=== PATIENT | female | born 1965 | race Caucasian/White ===

== ENCOUNTER 2017-08-08 06:05 | Emergency (ER) | payer OTHER ==
[~2017-08-08] VITALS: Ht 162.6 cm; Wt 83.1 kg
[~2017-08-08 06:05] MED LIST: ALBUAER19 INH; CLR10 PO; DOXY100C2 PO; NITR-5 PO; PRLSR20 PO
[2017-08-08 06:09] VITALS: TEMP 36.5; Ht 162.6 cm; Wt 83.1 kg
[2017-08-08] MEDS ORDERED: ASPCH81X PO (06:23)
[2017-08-08] MEDS ORDERED: GLC/500 PO (06:23)
[2017-08-08] MEDS ORDERED: VNTHFA/IN INH (06:23)
[2017-08-08] MEDS ORDERED: ASPIRIN 81 MG CHEW PO STA (06:27)
[2017-08-08] MEDS ORDERED: ALUMINUM/MAGNESIUM SUSP 30 ML UDC PO STA (06:27)
--- NOTE | 2017-08-08 06:35 | EMERGENCY ROOM VISIT NOTE ---
History Report prepared by Carlos: Citlaly Caldwell Under the Supervision of: Dr. Tahir Denise D.O. 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 She states that movement worsens her pain and she describes it as waxing and waning. She also has numbness that goes from her arms down to her fingertips, neck pain, chest pain, and some shoulder pain. She notes that sometimes her "left breast feels heavy." She has tried icing it and massaging it but they have not alleviated her pain. She has had diarrhea for over a month but denies any SOB. The patient reports that her doctor told her to come to the ED for a stress test as she has had 3 EKGs in the past. She has had a hysterectomy. 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 A total of 10 systems reviewed and were otherwise negative. Past Medical & Surgical Medical Problems: (1) Asthma Surgical Problems: (1) S/P hysterectomy Family History Diabetes mellitus Social History Smoking Status: Never Smoker Alcohol Use: none Marital Status: Housing Status: lives with significant other Occupation Status: employed Current/Historical Medications Scheduled Aspirin (Aspirin Chewable), 81 MG PO QPM Metformin Hcl (Glucophage), 500 MG PO BID Scheduled PRN Albuterol Hfa (Ventolin Hfa), 2 PUFFS INH QID PRN for SOB/Wheezing Allergies Coded Allergies: Milk (Verified Allergy, Severe, "THROAT FEELS FULL", DIARRHEA, 08/08/17) Penicillins (Verified Allergy, Intermediate, eye swelling, 08/08/17) Physical Exam Vital Signs Date Time Temp Pulse Resp B/P (MAP) Pulse Ox O2 Delivery O2 Flow Rate FiO2 08/08/17 07:32 61 15 133/76 97 Room Air 08/08/17 06:37 98 Room Air 08/08/17 06:37 Room Air 08/08/17 06:09 36.5 60 16 131/73 97 Room Air Physical Exam GENERAL: Patient is awake, alert, and in no acute distress. Patient is resting comfortably and showing no signs of anxiety EYES: The conjunctivae are clear. The pupils are round and reactive. EARS, NOSE, MOUTH AND THROAT: The nose is without any evidence of any deformity. Mucous membranes are moist tongue is midline NECK: No midline tenderness or decreased ROM appreciated. Tenderness over the left paraspinous musculature. RESPIRATORY: Normal respiratory effort is noted there is no evidence of wheezing rhonchi or rales CARDIOVASCULAR: Regular rate and rhythm noted there no murmurs rubs or gallops normal S1 normal S2 GASTROINTESTINAL: The abdomen is soft. Bowel sounds are present in all quadrants. Abdomen is nontender BACK: No midline tenderness or or step-off noted range of motion in flexion extension as well as rotation no signs of muscle spasm noted MUSCULOSKELETAL/EXTREMITIES: Pain with ROM of the left shoulder. No warmth or swelling appreciated. Tenderness into the left upper chest wall SKIN: There is no obvious evidence of any rash. There are no petechiae, pallor or cyanosis noted. NEUROLOGIC: Patient is awake alert and oriented x3 strength is symmetric patellar reflexes are 2+ bilaterally Medical Decision & Procedures ER Provider Diagnostic Interpretation: Radiology results as stated below per my review and radiologist interpretation: CHEST ONE VIEW PORTABLE HISTORY: 51 years-old Female CHEST PAIN acute atypical chest pain COMPARISON: None available TECHNIQUE: Portable AP view of the chest FINDINGS: Cardiomediastinal and hilar silhouettes are within normal limits. No pneumothorax, pleural effusion, focal airspace consolidation or overt pulmonary edema. The bones of the chest appear grossly intact. IMPRESSION: No acute process. The above report was generated using voice recognition software. It may contain grammatical, syntax or spelling errors. Electronically signed by: Sebastián Covington M.D. 08/08/2017 7:09 AM CERVICAL SPINE W/O CT DOSE: 266.68 mGy.cm CLINICAL HISTORY: 51 years-old Female with LUE pain and numbness. Acute left upper extremity pain and numbness. No acute reported trauma COMPARISON: None. TECHNIQUE: Multiple axial CT images of the cervical spine were obtained without contrast. A dose lowering technique was utilized adhering to the principles of ALARA. FINDINGS: Straightening of the normal cervical lordosis. There is no acute fracture or subluxation identified. The posterior elements appear intact. Evaluation of the central canal and neuroforamina are better conducted by MRI which has greater sensitivity for evaluation of the structures. Mild multilevel intervertebral disc space narrowing is most pronounced at C4-C5 where there is a small posterior disc osteophyte complex causing mild flattening of the ventral thecal sac without significant central canal or foraminal narrowing. Mild multilevel uncovertebral spurring and facet arthrosis. No high-grade central canal or foraminal stenosis identified. Large area of partially imaged sclerosis involves the right temporal bone and right mastoid air cells measuring 3.7 x 2.5 cm. Macroscopic fat is noted along the inferomedial margin Small right mastoid effusion. Left mastoid air cells are clear. Imaged ribs appear intact. No pneumothorax. Mildly heterogeneous thyroid with 8 mm right thyroid nodule. No pathologic adenopathy or prevertebral soft tissue swelling. IMPRESSION: 1. No acute fracture or subluxation. 2. Mild multilevel intervertebral disc space narrowing, uncovertebral spurring and facet arthrosis. At C4-C5 posterior disc osteophyte complex formation flattens the ventral thecal sac without significant interval canal or foraminal narrowing. 3. Straightening of the normal cervical lordosis may be secondary to paraspinal muscle spasm or patient positioning. 4. Large partially imaged area of sclerosis involving the right temporal bone and posterior right mastoid air cells measures up to 3.7 cm with macroscopic fat along the inferior medial margin, suggesting intraosseous lipoma. 5. Small right mastoid effusion. The above report was generated using voice recognition software. It may contain grammatical, syntax or spelling errors. Electronically signed by: Sebastián Covington M.D. 08/08/2017 7:22 AM L SHOULDER MIN 2 VIEWS ROUTINE HISTORY: 51 years-old Female pain acute left shoulder pain COMPARISON: None available TECHNIQUE: 3 views of the left shoulder FINDINGS: There are mild degenerative changes about the glenohumeral and AC joints. No acute fracture or dislocation. Imaged lung hedrick appear clear. IMPRESSION: No acute fracture or dislocation. The above report was generated using voice recognition software. It may contain grammatical, syntax or spelling errors. Electronically signed by: Sebastián Covington M.D. 08/08/2017 7:00 AM Laboratory Results 08/08/17 06:35 Red Blood Count 5.04, Mean Corpuscular Volume 87.1, Mean Corpuscular Hemoglobin 30.2, Mean Corpuscular Hemoglobin Concent 34.6, Mean Platelet Volume 10.4, Neutrophils (%) (Auto) 50.7, Lymphocytes (%) (Auto) 40.3, Monocytes (%) (Auto) 6.1, Eosinophils (%) (Auto) 1.8, Basophils (%) (Auto) 0.7, Neutrophils # (Auto) 4.34, Lymphocytes # (Auto) 3.44, Monocytes # (Auto) 0.52, Eosinophils # (Auto) 0.15, Basophils # (Auto) 0.06 08/08/17 06:35 Test 08/08/17 06:35 White Blood Count 8.54 K/uL (4.8-10.8) Red Blood Count 5.04 M/uL (4.2-5.4) Hemoglobin 15.2 g/dL (12.0-16.0) Hematocrit 43.9 % (37-47) Mean Corpuscular Volume 87.1 fL (80-100) Mean Corpuscular Hemoglobin 30.2 pg (25-34) Mean Corpuscular Hemoglobin Concent 34.6 g/dl (32-36) Platelet Count 253 K/uL (130-400) Mean Platelet Volume 10.4 fL (7.4-10.4) Neutrophils (%) (Auto) 50.7 % Lymphocytes (%) (Auto) 40.3 % Monocytes (%) (Auto) 6.1 % Eosinophils (%) (Auto) 1.8 % Basophils (%) (Auto) 0.7 % Neutrophils # (Auto) 4.34 K/uL (1.4-6.5) Lymphocytes # (Auto) 3.44 K/uL (1.2-3.4) Monocytes # (Auto) 0.52 K/uL (0.11-0.59) Eosinophils # (Auto) 0.15 K/uL (0-0.5) Basophils # (Auto) 0.06 K/uL (0-0.2) RDW Standard Deviation 41.7 fL (36.4-46.3) RDW Coefficient of Variation 13.1 % (11.5-14.5) Immature Granulocyte % (Auto) 0.4 % Immature Granulocyte # (Auto) 0.03 K/uL (0.00-0.02) Prothrombin Time 10.0 SECONDS (9.0-12.0) Prothromb Time International Ratio 1.0 (0.9-1.1) Activated Partial Thromboplast Time 28.3 SECONDS (21.0-31.0) Partial Thromboplastin Ratio 1.1 Anion Gap 5.0 mmol/L (3-11) Est Creatinine Clear Calc Drug Dose 66.9 ml/min Estimated GFR () 71.7 Estimated GFR (Non- 61.9 BUN/Creatinine Ratio 13.2 (10-20) Calcium Level 9.1 mg/dl (8.5-10.1) Total Bilirubin 0.4 mg/dl (0.2-1) Direct Bilirubin < 0.1 mg/dl (0-0.2) Aspartate Amino Transf (AST/SGOT) 28 U/L (15-37) Alanine Aminotransferase (ALT/SGPT) 40 U/L (12-78) Alkaline Phosphatase 138 U/L (45-117) Total Creatine Kinase 56 U/L (26-192) Creatine Kinase MB < 0.5 ng/ml (0.5-3.6) Creatine Kinase MB Ratio (0-3.0) Troponin I < 0.015 ng/ml (0-0.045) Total Protein 8.4 gm/dl (6.4-8.2) Albumin 3.8 gm/dl (3.4-5.0) Lipase 136 U/L (73-393) Laboratory results per my review. Medications Administered Medications (Trade) Dose Ordered Sig/Raimundo Route Start Time Stop Time Status Last Admin Dose Admin Aspirin (Aspirin Chew) 324 mg NOW STAT PO 08/08/17 06:27 08/08/17 06:29 DC 08/08/17 06:43 324 MG Al Hydroxide/Mg Hydroxide (Maalox Susp) 30 ml NOW STAT PO 08/08/17 06:27 08/08/17 06:29 DC 08/08/17 06:43 30 ML ECG Per My Interpretation Indication: chest pain Rate (beats per minute): 62 Rhythm: normal sinus Findings: T-wave inversion (Anterior), no ectopy, other (low voltage noted throughout) Comparison ECG Date: no prior available ED Course 0621: The patient was evaluated in room A11. A complete history and physical examination were performed. 626: Ordered Maalox Susp 30 ml PO,, Aspirin 324 mg PO 0732: Upon reevaluation, the patient is feeling better. I discussed the results and treatment plan with her. She verbalized agreement of the treatment plan. She was discharged home. 0835: She has a heart score of 3. Medical Decision Prior records/ancillary studies reviewed. Triage Nursing notes reviewed. The patient's history was concerning for chest pain. Differential diagnosis: Etiologies such as cardiac ischemia, aortic dissection, pulmonary embolism, pneumonia, pneumothorax, musculoskeletal, infections, pericarditis, myocarditis , esophageal rupture, gastrointestinal, as well as others were entertained. The patient is a 51-year-old female who presented to the emergency department for an evaluation of chest discomfort. The patient states that she was seen by her primary care physician in [place] and was scheduled for a stress test because of pain that she was experiencing in her shoulder. The patient has a strong family history of coronary artery disease and reportedly had an abnormal EKG and her primary care physician's office. The patient's pain is not exertional. The pain is reproducible with palpation over the chest wall as well as movement of the shoulder. The patient states that she has had ongoing discomfort through the majority of the week. The pain has been over the last 24 hours constant. The patient's EKG did show some nonspecific T-wave abnormalities. Her troponin was negative despite having ongoing pain. The patient was treated with aspirin and Maalox. I discussed patient's laboratory and radiographic studies with her. I also discussed the limitations of the emergency department workup for chest pain. At this time the patient is scheduled for a stress test. She was encouraged to rest and avoid any strenuous activity. She was encouraged to continue all medications as prescribed. She was also encouraged to follow-up with her primary care physician to discuss other workup such as EMG and MRI the shoulder. She is also encouraged to follow-up for the stress test as scheduled but return to the emergency department immediately if symptoms change worsen or the need arises. Medication Reconcilliation Current Medication List: was personally reviewed by me Blood Pressure Screening Patient's blood pressure: Normal blood pressure Blood pressure disposition: Did not require urgent referral Impression Primary Impression: Chest pain Additional Impression: Shoulder pain Scribe Attestation The scribe's documentation has been prepared under my direction and personally reviewed by me in its entirety. I confirm that the note above accurately reflects all work, treatment, procedures, and medical decision making performed by me. Departure Information Dispostion Home / Self-Care Referrals No Doctor, Assigned (PCP) Forms HOME CARE DOCUMENTATION FORM, IMPORTANT VISIT INFORMATION Patient Instructions My [facility] Additional Instructions Call your family doctor in the morning to schedule a follow-up appointment. Rest and avoid any strenuous activity. Return to the emergency department immediately if symptoms change worsen or the need arises. Continue taking Tylenol for pain. Discussed possibility with your family doctor that you may require further testing such as an EMG or an MRI of the left shoulder to further evaluate the cause your symptoms. Be sure to keep your appointment for your stress test. Problem Qualifiers
[2017-08-08 06:37] VITALS: O2SAT 98
[2017-08-08 06:43] LABS: BASO % 0.7 %; BASO ABS # 0.06 K/uL (0-0.2); EOS % 1.8 %; EOS ABS # 0.15 K/uL (0-0.5); HEMATOCRIT 43.9 % (37-47); HEMOGLOBIN 15.2 g/dL (12.0-16.0); IG# 0.03 K/uL (0.00-0.02); LYMPH % 40.3 %; LYMPH ABS # 3.44 K/uL (1.2-3.4); MEAN CELL VOLUME 87.1 fL (80-100); MEAN CORPUSCULAR HEMOGLOBIN 30.2 pg (25-34); MEAN CORPUSCULAR HGB CONC 34.6 g/dl (32-36); MEAN PLATELET VOLUME 10.4 fL (7.4-10.4); MONO % 6.1 %; MONO ABS # 0.52 K/uL (0.11-0.59); NEUT % 50.7 %; NEUT ABS # 4.34 K/uL (1.4-6.5); PLATELET COUNT 253 K/uL (130-400); RED CELL DISTRIBUTION WIDTH CV 13.1 % (11.5-14.5); RED CELL DISTRIBUTION WIDTH SD 41.7 fL (36.4-46.3); WHITE BLOOD COUNT 8.54 K/uL (4.8-10.8)
[2017-08-08 06:51] LABS: PTT PATIENT 28.3 SECONDS (21.0-31.0)
[2017-08-08 07:00] LABS: ALBUMIN 3.8 gm/dl (3.4-5.0); ALT/SGPT 40 U/L (12-78); AST/SGOT 28 U/L (15-37); BLOOD UREA NITROGEN 14 mg/dl (7-18); CALCIUM 9.1 mg/dl (8.5-10.1); CARBON DIOXIDE 25 mmol/L (21-32); CREATININE 1.05 mg/dl (0.60-1.20); GLUCOSE 155 mg/dl (70-99); LIPASE 136 U/L (73-393); POTASSIUM 4.1 mmol/L (3.5-5.1); SODIUM 138 mmol/L (136-145)
--- NOTE | 2017-08-08 07:02 | DIAGNOSTIC IMAGING REPORT ---
L SHOULDER MIN 2 VIEWS ROUTINE HISTORY: 51 years-old Female pain acute left shoulder pain COMPARISON: None available TECHNIQUE: 3 views of the left shoulder FINDINGS: There are mild degenerative changes about the glenohumeral and AC joints. No acute fracture or dislocation. Imaged lung hedrick appear clear. IMPRESSION: No acute fracture or dislocation. The above report was generated using voice recognition software. It may contain grammatical, syntax or spelling errors. Electronically signed by: Sebastián Covington M.D. 08/08/2017 7:00 AM Dictated Date/Time: 08/08/2017 6:59 AM
[2017-08-08 07:05] LABS: ALKALINE PHOSPHATASE 138 U/L (45-117); CKMB < 0.5 ng/ml (0.5-3.6); TOTAL PROTEIN 8.4 gm/dl (6.4-8.2)
--- NOTE | 2017-08-08 07:11 | DIAGNOSTIC IMAGING REPORT ---
CHEST ONE VIEW PORTABLE HISTORY: 51 years-old Female CHEST PAIN acute atypical chest pain COMPARISON: None available TECHNIQUE: Portable AP view of the chest FINDINGS: Cardiomediastinal and hilar silhouettes are within normal limits. No pneumothorax, pleural effusion, focal airspace consolidation or overt pulmonary edema. The bones of the chest appear grossly intact. IMPRESSION: No acute process. The above report was generated using voice recognition software. It may contain grammatical, syntax or spelling errors. Electronically signed by: Sebastián Covington M.D. 08/08/2017 7:09 AM Dictated Date/Time: 08/08/2017 7:09 AM
--- NOTE | 2017-08-08 07:24 | DIAGNOSTIC IMAGING REPORT ---
CERVICAL SPINE W/O CT DOSE: 266.68 mGy.cm CLINICAL HISTORY: 51 years-old Female with LUE pain and numbness. Acute left upper extremity pain and numbness. No acute reported trauma COMPARISON: None. TECHNIQUE: Multiple axial CT images of the cervical spine were obtained without contrast. A dose lowering technique was utilized adhering to the principles of ALARA. FINDINGS: Straightening of the normal cervical lordosis. There is no acute fracture or subluxation identified. The posterior elements appear intact. Evaluation of the central canal and neuroforamina are better conducted by MRI which has greater sensitivity for evaluation of the structures. Mild multilevel intervertebral disc space narrowing is most pronounced at C4-C5 where there is a small posterior disc osteophyte complex causing mild flattening of the ventral thecal sac without significant central canal or foraminal narrowing. Mild multilevel uncovertebral spurring and facet arthrosis. No high-grade central canal or foraminal stenosis identified. Large area of partially imaged sclerosis involves the right temporal bone and right mastoid air cells measuring 3.7 x 2.5 cm. Macroscopic fat is noted along the inferomedial margin Small right mastoid effusion. Left mastoid air cells are clear. Imaged ribs appear intact. No pneumothorax. Mildly heterogeneous thyroid with 8 mm right thyroid nodule. No pathologic adenopathy or prevertebral soft tissue swelling. IMPRESSION: 1. No acute fracture or subluxation. 2. Mild multilevel intervertebral disc space narrowing, uncovertebral spurring and facet arthrosis. At C4-C5 posterior disc osteophyte complex formation flattens the ventral thecal sac without significant interval canal or foraminal narrowing. 3. Straightening of the normal cervical lordosis may be secondary to paraspinal muscle spasm or patient positioning. 4. Large partially imaged area of sclerosis involving the right temporal bone and posterior right mastoid air cells measures up to 3.7 cm with macroscopic fat along the inferior medial margin, suggesting intraosseous lipoma. 5. Small right mastoid effusion. The above report was generated using voice recognition software. It may contain grammatical, syntax or spelling errors. Electronically signed by: Sebastián Covington M.D. 08/08/2017 7:22 AM Dictated Date/Time: 08/08/2017 7:10 AM
[2017-08-08 07:32] VITALS: BP 133/76; PULSE 61; O2SAT 97
== END 2017-08-08 07:44 | disposition home or self-care (01) ==
LOC: C.EDB 06:06 → C.EDA 07:44
DX: M25.512 Pain in left shoulder (principal); R07.89 Other chest pain; Z82.49 Family history of ischemic heart disease and other diseases of the circulatory system; Z88.0 Allergy status to penicillin; Z91.011 Allergy to milk products